=== PATIENT | male | born 1945 | race Caucasian/White ===

== ENCOUNTER 2018-10-08 16:36 | Emergency (ER) | payer OTHER ==
--- OUTSIDE RECORDS SUMMARY | 2018-10-08 16:39 | XMS REPORT ---
:1945 [facility] Address [address] [place] [address] [address]. [address] [place] [address] Care Team Providers Name Role Phone DR DAWSON STAHL S Unavailable Unavailable Problems This patient has no known problems. Allergies, Adverse Reactions, Alerts This patient has no known allergies or adverse reactions. Medications This patient has no known medications. Encounters Start End Encounter Admission Attending Care Care Encounter Date/Time Date/Time Type Type Clinicians Facility Department ID 2017-12-07 2017-12-07 Outpatient Joshua STAHL Joshua [facility] [id number] 15:17:00 23:59:00 DAWSON Results Test Description Test Time Test Comments Text Results Atomic Results Result Comments XR CHEST 2 VIEW 2017-12-07 19:08:18 LOCATION: [id number]: 72-year-old male who *WW* presents with a cough.COMMENT: Frontal and lateral chest radiographs were obtained. The lungs are clear and well-aerated. The cardiac silhouette, jodie, andmediastinum are within normal limits. The skeleton and soft tissues areunremarkable. The thoracic aorta is uncoiled and mildly ectatic.IMPRESSION:Unremarkable radiographic examination of the chest.
--- NOTE | 2018-10-08 18:08 | RAD REPORT ---
EXAM DESCRIPTION: RAD - Shoulder Right 2 View - 10/08/2018 5:46 pm CLINICAL HISTORY: Right shoulder pain status post fall FINDINGS: No fracture or dislocation is seen.
--- NOTE | 2018-10-08 18:35 | EDPHYS ---
Physician Documentation [facility] Name: Yohannes Pritchett Age: 73 yrs Sex: Male : 1945 Arrival Date: 10/08/2018 Time: 16:40 Bed 7 Private MD: Out, [facility] ED Physician Akshat Castelan HPI: 10/08 18:03 This 73 yrs old Male presents to ER via Ambulatory with complaints of Fall jmm Injury - SHOULDER. 18:03 Details of fall: The patient fell from an upright position. Onset: The symptoms/episode jmm began/occurred acutely, yesterday. Associated injuries: The patient sustained right shoulder. This is a 73 year old male with a history of HLP, HTN that presents to the ED with right shoulder pain beginning yesterday after the patient slipped on a floor with his right shoulder hitting a table. Patient complains of pain on abduction. Denies other injury. . Historical: - Allergies: 16:52 No Known Allergies; aj - PMHx: 16:52 Hyperlipidemia; Hypertension; aj - PSHx: 16:52 None; aj - Immunization history: Last tetanus immunization: - up to date. - Social history:: Smoking status: Patient/guardian denies using tobacco. - Ebola Screening: : Patient negative for fever greater than or equal to 101.5 degrees Fahrenheit, and additional compatible Ebola Virus Disease symptoms Patient denies exposure to infectious person Patient denies travel to an Ebola-affected area in the 21 days before illness onset No symptoms or risks identified at this time. ROS: 18:03 Constitutional: Negative for fever, chills, and weight loss, Cardiovascular: Negative jmm for chest pain, palpitations, and edema, Respiratory: Negative for shortness of breath, cough, wheezing, and pleuritic chest pain. 18:03 MS/extremity: Positive for injury or acute deformity, pain. 18:03 All other systems are negative. Exam: 18:03 Constitutional: This is a well developed, well nourished patient who is awake, alert, jmm and in no acute distress. Head/Face: atraumatic. Eyes: EOMI, no conjunctival erythema appreciated ENT: Moist Mucus Membranes Neck: Trachea midline, Supple Chest/axilla: Normal chest wall appearance and motion. Cardiovascular: Regular rate and rhythm. No edema appreciated Respiratory: Normal respirations, no respiratory distress appreciated 18:03 Musculoskeletal/extremity: patient is unable to abduct right arm due to pain. pain is elicited on palpation of the right proximal humeral region, full radial pulse, NVI, full metalsmith helper strength. 18:03 Skin: Appearance: Color: normal in color. 18:03 Neuro: Orientation: is normal, Mentation: is normal, Memory: is normal. 18:03 Psych: Behavior/mood is pleasant, cooperative. Vital Signs: 16:49 BP 135 / 79; Pulse 73; Resp 20; Temp 98.4; Pulse Ox 100% on R/A; Weight 91.63 kg; aj Height 6 ft. 1 in. (185.42 cm); 16:49 Body Mass Index 26.65 (91.63 kg, 185.42 cm) aj [place] Coma Score: 16:49 Eye Response: spontaneous(4). Verbal Response: oriented(5). Motor Response: obeys aj commands(6). Total: 15. Trauma Score (Adult): 16:49 Eye Response: spontaneous(1); Verbal Response: oriented(1); Motor Response: obeys aj commands(2); Systolic BP: > 89 mm Hg(4); Respiratory Rate: 10 to 29 per min(4); Tang Score: 15; Trauma Score: 12 MDM: 17:44 Patient medically screened. [facility] 18:33 Data reviewed: vital signs, nurses notes. Counseling: I had a detailed discussion with erin the patient and/or guardian regarding: the historical points, exam findings, and any diagnostic results supporting the discharge/admit diagnosis, radiology results, the need for outpatient follow up, to return to the emergency department if symptoms worsen or persist or if there are any questions or concerns that arise at home. 10/08 16:52 Order name: XRAY Shoulder RIGHT 2 view; Complete Time: 18:11 aj Administered Medications: No medications were administered Disposition: 10/08/18 18:34 Discharged to Home. Impression: Strain of unspecified muscle, fascia and tendon at shoulder and upper arm level, unspecified arm. - Condition is Stable. - Discharge Instructions: Shoulder Sprain. - Prescriptions for Baclofen 10 mg Oral Tablet - take 1 tablet by ORAL route 3 times per day; 20 tablet. - Medication Reconciliation Form, Thank You Letter, Antibiotic Education, Prescription Opioid Use form. - Follow up: Ashwin Schultz MD; When: 2 - 3 days; Reason: Recheck today's complaints, Continuance of care, Re-evaluation by your physician. Addendum: 10/12/2018 11:04 Co-signature as Attending Physician, Akshat Castelan MD I agree with the assessment and c haro plan of care. Signatures: Dispatcher [employer] EDJackie Bhandari RN RN sv Myers, Amanda, RN RN aj Anderson, Corey, MD MD cha Mickail, Joel, PA PA jmm Corrections: (The following items were deleted from the chart) 10/08 18:41 18:34 10/08/2018 18:34 Discharged to Home. Impression: Strain of unspecified muscle, sv fascia and tendon at shoulder and upper arm level, unspecified arm. Condition is Stable. Forms are Medication Reconciliation Form, Thank You Letter, Antibiotic Education, Prescription Opioid Use. Follow up: Ashwin Schultz; When: 2 - 3 days; Reason: Recheck today's complaints, Continuance of care, Re-evaluation by your physician. erin
--- NOTE | 2018-10-08 18:35 | ER ---
Nurse's Notes [facility] Name: Yohannes Pritchett Age: 73 yrs Sex: Male : 1945 Arrival Date: 10/08/2018 Time: 16:40 Bed 7 Private MD: Out, [facility] Diagnosis: Strain of unspecified muscle, fascia and tendon at shoulder and upper arm level, unspecified arm Presentation: 10/08 16:49 Presenting complaint: Patient states: Slip and fall yesterday, hitting right shoulder aj on table. Patient reports pain with lifting right arm. Care prior to arrival: None. Mechanism of Injury: Fall from standing position. Trauma event details: Injury occurred in the [facility], Injury occurred: at home. Injury occurred: October 07, 2018. 16:49 Acuity: ROXANNE 4 aj 16:49 Method Of Arrival: Ambulatory aj 17:40 Transition of care: patient was not received from another setting of care. Transition sv of care: patient was not received from another setting of care. Onset of symptoms was October 07, 2018. Risk Assessment: Do you want to hurt yourself or someone else? Patient reports no desire to harm self or others. Initial Sepsis Screen: Does the patient meet any 2 criteria? No. Patient's initial sepsis screen is negative. Does the patient have a suspected source of infection? No. Patient's initial sepsis screen is negative. Trauma Activation: Not Applicable Physician: ED Physician; Name: ; Notified At: ; Arrived At: Physician: General Surgeon; Name: ; Notified At: ; Arrived At: Physician: Radiology; Name: ; Notified At: ; Arrived At: Physician: Respiratory; Name: ; Notified At: ; Arrived At: Physician: Lab; Name: ; Notified At: ; Arrived At: Historical: - Allergies: 16:52 No Known Allergies; aj - PMHx: 16:52 Hyperlipidemia; Hypertension; aj - PSHx: 16:52 None; aj - Immunization history: Last tetanus immunization: - up to date. - Social history:: Smoking status: Patient/guardian denies using tobacco. - Ebola Screening: : Patient negative for fever greater than or equal to 101.5 degrees Fahrenheit, and additional compatible Ebola Virus Disease symptoms Patient denies exposure to infectious person Patient denies travel to an Ebola-affected area in the 21 days before illness onset No symptoms or risks identified at this time. Screenin:40 Nutritional screening: No deficits noted. Fall Risk None identified. sv 18:12 Abuse screen: Denies threats or abuse. Denies injuries from another. Tuberculosis hb screening: No symptoms or risk factors identified. Primary Survey: 16:49 NO uncontrolled hemorrhage observed. Breathing/Chest: Respiratory pattern: regular, aj Respiratory effort: spontaneous, unlabored. Circulation: Skin color: pink, Skin temperature: warm, dry. Disability Alert. Assessment: 16:49 General: Appears in no apparent distress. comfortable, Behavior is calm, cooperative, aj appropriate for age. Pain: Complains of pain in anterior aspect of right shoulder. Neuro: Level of Consciousness is awake, alert, obeys commands, Oriented to person, place, time, situation, Appropriate for age. Respiratory: Airway is patent Respiratory effort is even, unlabored, Respiratory pattern is regular, symmetrical. Derm: Skin is intact, is healthy with good turgor, Skin is pink, warm \T\ dry. normal. Musculoskeletal: Reports pain in anterior aspect of right shoulder. 17:30 General: Appears in no apparent distress. comfortable, Behavior is calm, cooperative, sv appropriate for age. Pain: Complains of pain in anterior aspect of right shoulder Pain currently is 5 out of 10 on a pain scale. Neuro: Level of Consciousness is awake, alert, obeys commands, Oriented to person, place, time, situation, Moves all extremities. Full function. Respiratory: Respiratory effort is even, unlabored, Respiratory pattern is regular, symmetrical. Derm: Skin is pink, warm \T\ dry. Musculoskeletal: Range of motion: intact in all extremities. Vital Signs: 16:49 BP 135 / 79; Pulse 73; Resp 20; Temp 98.4; Pulse Ox 100% on R/A; Weight 91.63 kg; aj Height 6 ft. 1 in. (185.42 cm); 16:49 Body Mass Index 26.65 (91.63 kg, 185.42 cm) aj [place] Coma Score: 16:49 Eye Response: spontaneous(4). Verbal Response: oriented(5). Motor Response: obeys aj commands(6). Total: 15. Trauma Score (Adult): 16:49 Eye Response: spontaneous(1); Verbal Response: oriented(1); Motor Response: obeys aj commands(2); Systolic BP: > 89 mm Hg(4); Respiratory Rate: 10 to 29 per min(4); Tang Score: 15; Trauma Score: 12 ED Course: 16:40 Patient arrived in ED. sb2 16:40 Out, [facility] is Private Physician. sb2 16:50 Triage completed. aj 16:52 Arm band placed on right wrist. Patient placed in waiting room. aj 17:40 Patient has correct armband on for positive identification. Bed in low position. Head sv of bed elevated. 17:44 John Preston PA is PHCP. jmm 17:44 Akshat Castelan MD is Attending Physician. jmm 17:47 XRAY Shoulder RIGHT 2 view In Process Unspecified. EDMS 18:02 Jackie Agarwal, CHRIS is Primary Nurse. sv 18:33 Ashwin Schultz MD is Referral Physician. m 18:41 No provider procedures requiring assistance completed. Patient did not have IV access sv during this emergency room visit. 19:29 Primary Nurse role handed off by Jackie Agarwal RN sv Administered Medications: No medications were administered Outcome: 18:34 Discharge ordered by . m 18:41 Patient left the ED. sv 18:41 Discharged to home ambulatory. sv 18:41 Condition: stable 18:41 Discharge instructions given to patient, Instructed on discharge instructions, follow up and referral plans. no drinking with medication, no driving heavy equipment, medication usage, Demonstrated understanding of instructions, follow-up care, medications, Prescriptions given X 1. Signatures: Dispatcher [employer] EDMS Jackie Agarwal RN RN sv Myers, Amanda RN John Kimble PA PA Mica Burciaga RN RN hb Billeau, Sheri sb2
== END 2018-10-08 18:41 | disposition home or self-care (01) ==
LOC: ER 16:36
DX: S46.911A Strain of unspecified muscle, fascia and tendon at shoulder and upper arm level, right arm, initial encounter (principal); W01.190A Fall on same level from slipping, tripping and stumbling with subsequent striking against furniture, initial encounter; E78.5 Hyperlipidemia, unspecified; I10 Essential (primary) hypertension
CPT/HCPCS: 99283

== ENCOUNTER 2019-07-20 12:26 | Emergency (ER) | payer OTHER, MEDICARE ==
[2019-07-20 14:50] LABS: Bilirubin Direct 0.2 mg/dL (0-0.2); Bilirubin Total 0.8 mg/dL (0.2-1.0); Potassium 3.8 mmol/L (3.5-5.1); Protein, Total 7.4 g/dL (6.4-8.2)
[2019-07-20 14:55] LABS: Absolute Lymphocytes (CBC) 3.1 K/uL (0.7-4.9); Basophils % 0.8 % (0-1.3); Hematocrit 39.3 % (39.6-49.0); Lymphocytes % 31.4 % (15.3-44.8); MPV 7.9 fL (7.6-11.3); RBC Red Blood Cell Count 4.39 M/uL (4.33-5.43)
[2019-07-20] MEDS ORDERED: DIAZEPAM 5 MG TABLET ONE (15:16)
[2019-07-20] MEDS ORDERED: SIMETHICONE 80 MG TAB ONE (15:17)
[2019-07-20] MEDS ORDERED: NA CHLORIDE 0.9% 1,000 ML ONE (15:17)
--- NOTE | 2019-07-20 16:25 | RAD REPORT ---
EXAM DESCRIPTION: CT - Abdomen Pelvis W Contrast - 07/20/2019 3:54 pm CLINICAL HISTORY: Abdominal pain. COMPARISON: None. TECHNIQUE: Computed axial tomography of the abdomen and pelvis was obtained. 100 cc Isovue-300 is ad ministered intravenously. Oral contrast was given. All CT scans are performed using dose optimization technique as appropriate and may include automated exposure control or mA/KV adjustment according to patient size. FINDINGS: The liver, spleen, pancreas, and adrenals appear unremarkable. 4.7 centimeter mass extends off of the anterior aspect of the left kidney. Hounsfield unit 24. A 3.6 centimeter mass extends off of midpole of the left kidney Hounsfield unit 74. No thick wall Small simple cysts seen within each kidney An abnormal appendix is not visualized There is no evidence of diverticulitis The prostate gland is moderately to markedly enlarged. Small inguinal hernias contain fat Small hiatal hernia. Small umbilical hernia IMPRESSION: Two masses extending off of the left kidney probably benign complex cysts. . Follow up r enal ultrasound in 3 months recommended for re-evaluation No acute abnormality displayed
--- NOTE | 2019-07-20 16:35 | ER ---
Nurse's Notes [facility] Name: Yohannes Pritchett Age: 74 yrs Sex: Male : 1945 Arrival Date: 07/20/2019 Time: 12:30 Bed 13 Private MD: Diagnosis: Unspecified abdominal pain;Mass on kidney Presentation: 07/20 12:46 Presenting complaint: Patient states: "my stomach is sore specially right here (points aa5 to LLQ) and it's been going on for months". pt reports he has colonoscopy scheduled for the end of July. Pt reports nausea, denies vomiting. Transition of care: patient was not received from another setting of care. Onset of symptoms was 2018. Risk Assessment: Do you want to hurt yourself or someone else? Patient reports no desire to harm self or others. Initial Sepsis Screen: Does the patient meet any 2 criteria? No. Patient's initial sepsis screen is negative. Does the patient have a suspected source of infection? No. Patient's initial sepsis screen is negative. Care prior to arrival: None. 12:46 Acuity: ROXANNE 3 aa5 12:46 Method Of Arrival: Ambulatory aa5 Historical: - Allergies: 12:46 No Known Allergies; aa5 - PMHx: 12:46 Hyperlipidemia; Hypertension; aa5 - PSHx: 12:46 None; aa5 - Immunization history:: Adult Immunizations up to date. - Social history:: Smoking status: Patient/guardian denies using tobacco. - Ebola Screening: : No symptoms or risks identified at this time. Screenin:26 Abuse screen: Denies threats or abuse. Denies injuries from another. Nutritional jl7 screening: No deficits noted. Tuberculosis screening: No symptoms or risk factors identified. Fall Risk IV access (20 points). Total Dhillon Fall Scale indicates No Risk (0-24 pts). Assessment: 14:15 General: Appears in no apparent distress. uncomfortable, Behavior is cooperative, jl7 anxious. Pain: Denies pain. Neuro: Level of Consciousness is awake, alert, obeys commands. Cardiovascular: Patient's skin is warm and dry. Respiratory: Airway is patent Respiratory effort is even, unlabored, Respiratory pattern is regular, symmetrical. GI: Abdomen is round non-distended, Bowel sounds present X 4 quads. Abd is soft and non tender X 4 quads. Derm: Skin is pink, warm \\T\\ dry. 14:26 Reassessment: Pt done drinking oral contrast, CT notified. jl7 15:15 Reassessment: Patient appears in no apparent distress at this time. Patient and/or jl7 family updated on plan of care and expected duration. Pain level reassessed. Patient is alert, oriented x 3, equal unlabored respirations, skin warm/dry/pink. 16:15 Reassessment: Patient appears in no apparent distress at this time. Patient and/or jl7 family updated on plan of care and expected duration. Pain level reassessed. Patient is alert, oriented x 3, equal unlabored respirations, skin warm/dry/pink. Patient states feeling better. Patient states symptoms have improved. Vital Signs: 12:48 BP 135 / 97; Pulse 68; Resp 18 S; Temp 98.2(TE); Pulse Ox 97% on R/A; Weight 92.99 kg aa5 (R); Height 6 ft. 1 in. (185.42 cm) (R); Pain 0/10; 15:37 BP 132 / 84; Pulse 58; Resp 16 S; Pulse Ox 98% on R/A; jl7 16:45 BP 130 / 85; Pulse 62; Resp 16 S; Pulse Ox 100% on R/A; jl7 12:48 Body Mass Index 27.05 (92.99 kg, 185.42 cm) [facility] ED Course: 12:30 Patient arrived in ED. as 12:45 Arm band placed on. [facility] 12:48 Triage completed. aa5 14:01 Jasmyn Hern[facility]dez [facility]-C [facility] snw 14:01 Akshat Castelan MD is Attending Physician. snw 14:08 Rima Valera RN is Primary Nurse. [facility] 14:26 Patient has correct armband on for positive identification. Bed in low position. Call [facility] light in reach. Side rails up X 1. 14:26 Initial lab(s) drawn, by me, sent to lab. Inserted saline lock: 22 gauge in right jl7 antecubital area, using aseptic technique. Blood collected. 15:53 CT completed. Patient tolerated procedure well. Patient moved back from CT. vm2 15:55 CT Abd/Pelvis - PO and IV Contrast In Process Unspecified. EDMS 17:16 No provider procedures requiring assistance completed. IV discontinued, intact, jl7 bleeding controlled, No redness/swelling at site. Pressure dressing applied. Administered Medications: 15:23 Drug: Simethicone 120 mg Route: PO; jl7 16:00 Follow up: Response: No adverse reaction jl7 15:23 Drug: Valium 5 mg Route: PO; jl7 16:00 Follow up: Response: No adverse reaction [facility] 15:23 Drug: NS 0.9% 1000 ml Route: IV; Rate: 200 ml/hr; Site: right antecubital; jl7 17:16 Follow up: IV Status: Completed infusion jl7 Outcome: 16:34 Discharge ordered by . snzack 17:16 Discharged to home ambulatory. jl 17:16 Condition: stable 17:16 Discharge instructions given to patient, Instructed on discharge instructions, follow up and referral plans. medication usage, Demonstrated understanding of instructions, follow-up care, medications, Prescriptions given X 1. 17:16 Patient left the ED. jl7 Signatures: Dispatcher [employer] EDND Jasmyn Hernández, CUSTOMER ACCOUNT COORDINATOR-C CUSTOMER ACCOUNT COORDINATOR-Shruthi Patel Audri, RN RN aa5 Rima Valera RN RN jl7 Julia Menendez [facility]
--- NOTE | 2019-07-20 16:35 | EDPHYS ---
Physician Documentation [facility] Name: Yohannes Pritchett Age: 74 yrs Sex: Male : 1945 Arrival Date: 07/20/2019 Time: 12:30 Bed 13 Private MD: ED Physician Akshat Castelan HPI: 07/20 14:57 This 74 yrs old Male presents to ER via Ambulatory with complaints of snw Abdominal Pain. 14:57 The patient presents with abdominal pain that is diffuse. Onset: The symptoms/episode snw began/occurred 2 month(s) ago, and became persistent. The symptoms do not radiate. Associated signs and symptoms: Pertinent positives: nausea, vomiting, and diarrhea. The symptoms are described as crampy, intermittent. Severity of pain: At its worst the pain was moderate severe in the emergency department the pain has improved. pt has had two antibiotics over the course of the past two months. Stool for c.diff negative. x 2 as noted. Historical: - Allergies: 12:46 No Known Allergies; aa5 - PMHx: 12:46 Hyperlipidemia; Hypertension; aa5 - PSHx: 12:46 None; aa5 - Immunization history:: Adult Immunizations up to date. - Social history:: Smoking status: Patient/guardian denies using tobacco. - Ebola Screening: : No symptoms or risks identified at this time. ROS: 14:55 Constitutional: Negative for fever, chills, and weight loss, Eyes: Negative for injury, snw pain, redness, and discharge, ENT: Negative for injury, pain, and discharge, Neck: Negative for injury, pain, and swelling, Cardiovascular: Negative for chest pain, palpitations, and edema, Respiratory: Negative for shortness of breath, cough, wheezing, and pleuritic chest pain, Back: Negative for injury and pain, : Negative for injury, bleeding, discharge, and swelling, MS/Extremity: Negative for injury and deformity, Skin: Negative for injury, rash, and discoloration, Neuro: Negative for headache, weakness, numbness, tingling, and seizure, Psych: Negative for depression, anxiety, suicide ideation, homicidal ideation, and hallucinations. 14:55 Abdomen/GI: Positive for abdominal pain, nausea, vomiting, and diarrhea. Exam: 14:55 Constitutional: This is a well developed, well nourished patient who is awake, alert, snw and in no acute distress. Head/Face: Normocephalic, atraumatic. Eyes: Pupils equal round and reactive to light, extra-ocular motions intact. Lids and lashes normal. Conjunctiva and sclera are non-icteric and not injected. Cornea within normal limits. Periorbital areas with no swelling, redness, or edema. ENT: Nares patent. No nasal discharge, no septal abnormalities noted. Tympanic membranes are normal and external auditory canals are clear. Oropharynx with no redness, swelling, or masses, exudates, or evidence of obstruction, uvula midline. Mucous membranes moist. Neck: Trachea midline, no thyromegaly or masses palpated, and no cervical lymphadenopathy. Supple, full range of motion without nuchal rigidity, or vertebral point tenderness. No Meningismus. Chest/axilla: Normal chest wall appearance and motion. Nontender with no deformity. No lesions are appreciated. Cardiovascular: Regular rate and rhythm with a normal S1 and S2. No gallops, murmurs, or rubs. Normal PMI, no JVD. No pulse deficits. Respiratory: Lungs have equal breath sounds bilaterally, clear to auscultation and percussion. No rales, rhonchi or wheezes noted. No increased work of breathing, no retractions or nasal flaring. Back: No spinal tenderness. No costovertebral tenderness. Full range of motion. Skin: Warm, dry with normal turgor. Normal color with no rashes, no lesions, and no evidence of cellulitis. MS/ Extremity: Pulses equal, no cyanosis. Neurovascular intact. Full, normal range of motion. Neuro: Awake and alert, GCS 15, oriented to person, place, time, and situation. Cranial nerves II-XII grossly intact. Motor strength 5/5 in all extremities. Sensory grossly intact. Cerebellar exam normal. Normal gait. 14:55 Abdomen/GI: Inspection: distension, that is mild, Bowel sounds: hyperactive, in all quadrants, Palpation: abdomen is soft and non-tender, in all quadrants. 14:55 Psych: Behavior/mood is anxious. Vital Signs: 12:48 BP 135 / 97; Pulse 68; Resp 18 S; Temp 98.2(TE); Pulse Ox 97% on R/A; Weight 92.99 kg aa5 (R); Height 6 ft. 1 in. (185.42 cm) (R); Pain 0/10; 15:37 BP 132 / 84; Pulse 58; Resp 16 S; Pulse Ox 98% on R/A; jl7 16:45 BP 130 / 85; Pulse 62; Resp 16 S; Pulse Ox 100% on R/A; jl7 12:48 Body Mass Index 27.05 (92.99 kg, 185.42 cm) aa5 MDM: 14:03 Patient medically screened. snw 16:39 Data reviewed: vital signs, nurses notes. Data interpreted: Pulse oximetry: on room air snw is 98 %. Interpretation: normal. Counseling: I had a detailed discussion with the patient and/or guardian regarding: the historical points, exam findings, and any diagnostic results supporting the discharge/admit diagnosis, the presence of at least one elevated blood pressure reading (>120/80) during this emergency department visit, lab results, radiology results, the need for outpatient follow up, to return to the emergency department if symptoms worsen or persist or if there are any questions or concerns that arise at home. Special discussion: Based on the patient's Hx, exam, and Dx evaluation, there is no indication for emergent surgery or inpatient Tx. It is understood by the patient/guardian that if the Sx's persist or worsen they need to return immediately for re-evaluation. I have referred the patient to see his PCP for further evaluation of high blood pressure. Based on the history and exam findings, there is no indication for further emergent testing or inpatient evaluation. 07/20 14:02 Order name: Basic Metabolic Panel; Complete Time: 14:50 snw 07/20 14:02 Order name: CBC with Diff; Complete Time: 15:10 snw 07/20 14:02 Order name: Creatinine for Radiology; Complete Time: 14:50 snw 07/20 14:02 Order name: Hepatic Function; Complete Time: 14:50 snw 07/20 14:02 Order name: Lipase; Complete Time: 14:50 snw 07/20 14:02 Order name: CT Abd/Pelvis - PO and IV Contrast; Complete Time: 16:29 snw 07/20 14:02 Order name: IV Saline Lock; Complete Time: 14:26 snw 07/20 14:02 Order name: Labs collected and sent; Complete Time: 14:26 snw 07/20 14:49 Order name: NPO: except meds; Complete Time: 15:37 snw Administered Medications: 15:23 Drug: Simethicone 120 mg Route: PO; jl7 16:00 Follow up: Response: No adverse reaction 7 15:23 Drug: Valium 5 mg Route: PO; jl7 16:00 Follow up: Response: No adverse reaction jl7 15:23 Drug: NS 0.9% 1000 ml Route: IV; Rate: 200 ml/hr; Site: right antecubital; jl7 17:16 Follow up: IV Status: Completed infusion jl7 Disposition: 07/21 07:42 Co-signature as Attending Physician, Akshat Castelan MD I agree with the assessment and delaney plan of care. Disposition: 07/20/19 16:34 Discharged to Home. Impression: Unspecified abdominal pain, Mass on kidney. - Condition is Stable. - Discharge Instructions: Abdominal Pain, Adult, Colic, Fat and Cholesterol Restricted Diet, Hypertension. - Prescriptions for simethicone - take 120 milligram by ORAL route 2-3 times daily; 1 box. - Medication Reconciliation Form, Thank You Letter, Antibiotic Education, Prescription Opioid Use form. - Follow up: Private Physician; When: 1 week; Reason: Recheck today's complaints, Continuance of care, Re-evaluation by your physician. Follow up: Emergency Department; When: As needed; Reason: Worsening of condition. Signatures: Dispatcher [employer] Akshat Magana MD MD cha Therrien, Shelly, TANK CAR INSPECTOR-C TANK CAR INSPECTOR-Csnw Ying Alvarado RN RN aa5 Rima Valera RN RN jl7 Corrections: (The following items were deleted from the chart) 07/20 17:16 16:34 07/20/2019 16:34 Discharged to Home. Impression: Unspecified abdominal pain; Mass jl7 on kidney. Condition is Stable. Forms are Medication Reconciliation Form, Thank You Letter, Antibiotic Education, Prescription Opioid Use. Follow up: Private Physician; When: 1 week; Reason: Recheck today's complaints, Continuance of care, Re-evaluation by your physician. Follow up: Emergency Department; When: As needed; Reason: Worsening of condition. snw
[2019-07-20 17:25] VITALS: TEMP 98.2
[2019-07-20 17:27] VITALS: BP 130/85; O2SAT 100
== END 2019-07-20 17:16 | disposition home or self-care (01) ==
LOC: ER 12:26
DX: N28.89 Other specified disorders of kidney and ureter (principal); I10 Essential (primary) hypertension
CPT/HCPCS: 85025; 80048; 36415; 80076; 83690; 74177; Q9967; J7030; 96360; 96361; 99284

== ENCOUNTER 2019-11-16 16:26 | Emergency (ER) | payer OTHER, MEDICARE ==
--- OUTSIDE RECORDS SUMMARY | 2019-11-16 16:28 | XMS REPORT ---
:1945 Author Organization [employer] Care Team Providers Name Role Phone Ashwin Schultz Provider Role Unavailable Allergies, Adverse Reactions, Alerts Substance Reaction Event Type N.K.D.A. Info Not Available Non Drug Allergy Problems Problem Type Condition Code Onset Dates Condition Status Problem Impingement syndrome of right M75.41 Active shoulder Problem Acute pain of right shoulder M25.511 Active Problem Contusion of right shoulder, S40.011A Active initial encounter Assessment Impingement syndrome of right M75.41 Active shoulder Assessment Contusion of right shoulder, S40.011A Active initial encounter Assessment Acute pain of right shoulder M25.511 Active Medications Medication Code System Code Instructions Start End Date Status Dosage Date Atorvastatin [facility] [address]2491-964 Active not defined Calcium 7-98 Diazepam [facility] 01378-595 Active not defined 0-01 Losartan [facility] 68632-415 Active not defined Potassium-HCTZ 9-10 Metoprolol [facility] 38200-367 Active not defined Succinate ER 3-37 Trazodone HCl [facility] 45184-031 Active not defined 3-02 Baclofen [facility] 88839-533 Active not defined 0-06 Results No Known Results Summary Purpose [employer]ClinicalWorks Submission
--- OUTSIDE RECORDS SUMMARY | 2019-11-16 16:28 | XMS REPORT ---
:1945 [facility] Address [address] [place] [place] [address] Care Team Providers Name Role Phone DR SEVERO JOE Unavailable Unavailable DR DAWSON STAHL Unavailable Unavailable Problems This patient has no known problems. Allergies, Adverse Reactions, Alerts This patient has no known allergies or adverse reactions. Medications This patient has no known medications. Encounters Start End Encounter Admission Attending Care Care Encounter Date/Time Date/Time Type Type Clinicians Facility Department ID 2019-08-12 2019-08-12 Outpatient Joshua JOE [facility] ENDO [id number] 06:14:00 08:40:00 SEVERO 2017-12-07 2017-12-07 Outpatient Joshua STAHL [facility] RAD [id number] 15:17:00 23:59:00 DAWSON Results Test Description Test Time Test Comments Text Results Atomic Results Result Comments BASIC METABOLIC PANEL 2019-08-12 07:15:00 Test Item Value Reference Range Comments GLUCOSE (test code=06D) 103 mg/dL 75-100 SODIUM (test code=01A) 144 mmol/L 136-145 POTASSIUM (test code=01B) 3.8 mmol/L 3.6-5.1 CHLORIDE (test code=04A) 107 mmol/L 98-107 CO2 (test code=02A) 30 mmol/L 22-32 ANION GAP (test code=ANG) 10.8 mmol/L BUN (test code=05D) 16 mg/dL 7-18 CREATININE (test code=03E) 1.3 mg/dL 0.7-1.3 BUN/CREA (test code=BCR) 12 12-20 CALCIUM (test code=09D) 9.1 mg/dL 8.3-9.5 XR CHEST 2 VIEW *WW*2017-12-07 19:08:18LOCATION: [id number]: 72-year-old male who presents with a cough.COMMENT: Frontal and lateral chest radiographs were obtained. The lungs are clear and well-aerated. The cardiac silhouette, jodie, andmediastinum are within normal limits. The skeleton and soft tissues areunremarkable. The thoracic aorta is uncoiled and mildly ectatic.IMPRESSION: Unremarkable radiographic examination of the chest.
--- OUTSIDE RECORDS SUMMARY | 2019-11-16 16:28 | XMS REPORT ---
[...] Start End Date Status Dosage Date Atorvastatin [facility] 17584-398 Active not defined Calcium 7-98 Losartan [facility] 99907-888 Active not defined Potassium-HCTZ 9-10 Trazodone HCl [facility] 48167-650 Active not defined 3-02 Diazepam [facility] 47654-693 Active not defined 0-01 Metoprolol [facility] 03263-989 Active not defined Succinate ER 3-37 Baclofen [facility] 30129-843 Active not defined 0-06 Results No Known Results Summary Purpose eClinicalWorks Submission
--- NOTE | 2019-11-16 17:40 | ER ---
Nurse's Notes [facility] Name: Yohannes Pritchett Age: 74 yrs Sex: Male : 1945 Arrival Date: 11/16/2019 Time: 16:28 Bed 13 Private MD: Out, [facility] Diagnosis: Essential (primary) hypertension Presentation: 11/16 16:41 Presenting complaint: Patient states: I don't know if my machine is broken but my BP ca1 readings are high. Highest BP I got was 168/82 at 1545 today. I was here 2 days ago for hot flushes. Transition of care: patient was not received from another setting of care. Onset of symptoms was November 16, 2019. Risk Assessment: Do you want to hurt yourself or someone else? Patient reports no desire to harm self or others. Initial Sepsis Screen: Does the patient meet any 2 criteria? No. Patient's initial sepsis screen is negative. Does the patient have a suspected source of infection? No. Patient's initial sepsis screen is negative. Care prior to arrival: None. 16:41 Method Of Arrival: Ambulatory ca1 16:41 Acuity: ROXANNE 4 ca1 Historical: - Allergies: 16:43 No Known Allergies; ca1 - Home Meds: 16:43 metoprolol succinate 50 mg oral Tb24 1 tab once daily [Active]; ca1 losartan-hydrochlorothiazide 100-25 mg oral tab 1 tab once daily [Active]; - PMHx: 16:43 Hyperlipidemia; Hypertension; ca1 - PSHx: 16:43 None; ca1 - Immunization history:: Adult Immunizations up to date, Flu vaccine is up to date. - Coronavirus screen:: The patient has NOT traveled to [place], [place], or [place] in the past 14 days. The patient has NOT had contact with known/suspected case of Coronavirus?. - Social history:: Smoking status: Patient denies any tobacco usage or history of. - Ebola Screening: : Patient negative for fever greater than or equal to 101.5 degrees Fahrenheit, and additional compatible Ebola Virus Disease symptoms Patient denies exposure to infectious person Patient denies travel to an Ebola-affected area in the 21 days before illness onset No symptoms or risks identified at this time. Vital Signs: 16:43 BP 143 / 83; Pulse 84; Resp 17 S; Temp 97.3(TE); Pulse Ox 100% on R/A; Weight 92.08 kg ca1 (R); Height 6 ft. 1 in. (185.42 cm) (R); Pain 0/10; 16:43 Body Mass Index 26.78 (92.08 kg, 185.42 cm) ca1 ED Course: 16:28 Patient arrived in ED. mr 16:28 Out, [facility] is Private Physician. mr 16:37 Nadia Rock, RN is Primary Nurse. ph 16:42 Triage completed. ca1 16:43 [facility] kb 16:43 Jcaob Escobar MD is Attending Physician. kb 16:43 Arm band placed on right wrist. ca1 Administered Medications: No medications were administered Outcome: 17:40 Discharge ordered by . kb 17:48 Patient left the ED. ph Signatures: Vero Bangura FNP-C FNP-Wendy AlonzoaAnnette mr Nadia Rock RN RN Abril Rodrigues RN RN [facility]
--- NOTE | 2019-11-16 17:40 | EDPHYS ---
Physician Documentation [facility] Name: Yohannes Pritchett Age: 74 yrs Sex: Male : 1945 Arrival Date: 11/16/2019 Time: 16:28 Bed 13 Private MD: Out, [facility] ED Physician Jacob Escobar HPI: 11/16 17:46 This 74 yrs old Male presents to ER via Ambulatory with complaints of High kb Blood Pressure. 17:46 The patient has elevated blood pressure and discovered this at home, with a home kb device. Onset: The symptoms/episode began/occurred today. Modifying factors: Modifying factors: The symptoms are aggravated by anxiety. Associated signs and symptoms: The patient has no apparent associated signs or symptoms. Severity of symptoms: At its worst the blood pressure was 168 mm Hg, in the emergency department the blood pressure is improved, 121 mm Hg. The patient has experienced similar episodes in the past. The patient has been recently seen at the [facility] Emergency Department, this week, for similar complaints. Pt reports he was here 2 days ago because he had a hot flash and noticed his heart rate was 107 (on watch monitor). States he never had chest pain, palpitations or any other symptoms and wouldn't have noticed his elevated heart rate if he didn't have the hot flash. States everything checked out and he was able to go home after that visit. States he was busy yesterday so he didn't pay any attention to his vitals, but today he noticed his pulse had an irregular beat every once in a while, which normally means his bp is high. Reports he has had an "erratic" heart beat intermittently for years and his english composition instructor told him it was nothing to worry about. States he started checking his bp and it was in the 160s 3 times at 1500, 1530, and 1545 so he came in. States he had no symptoms and feels fine other than a little anxiety over the top number of the bp. States he lost his and youngest daughter in 2018 and has been very conscious of his health since then because he is alone. Pt became tearful when discussing this. Pt reports his daughter thinks this is all anxiety related and he has talked to his GP about anxiety medication, but he didn't want to put him on medication unless the anxiety is interfering with daily life. We discussed keeping a log of bp to take to follow up appt. Pt reports he called his english composition instructor (Dr Cuevas) and wasn't able to get an appt until 11/25 so he thinks he is going to change to Dr Duggan. Has appt with PCP in the morning. . Historical: - Allergies: 16:43 No Known Allergies; ca1 - Home Meds: 16:43 metoprolol succinate 50 mg oral Tb24 1 tab once daily [Active]; ca1 losartan-hydrochlorothiazide 100-25 mg oral tab 1 tab once daily [Active]; - PMHx: 16:43 Hyperlipidemia; Hypertension; ca1 - PSHx: 16:43 None; ca1 - Immunization history:: Adult Immunizations up to date, Flu vaccine is up to date. - Coronavirus screen:: The patient has NOT traveled to [place], [place], or [place] in the past 14 days. The patient has NOT had contact with known/suspected case of Coronavirus?. - Social history:: Smoking status: Patient denies any tobacco usage or history of. - Ebola Screening: : Patient negative for fever greater than or equal to 101.5 degrees Fahrenheit, and additional compatible Ebola Virus Disease symptoms Patient denies exposure to infectious person Patient denies travel to an Ebola-affected area in the 21 days before illness onset No symptoms or risks identified at this time. ROS: 17:46 Constitutional: Negative for fever, chills, and weight loss, Eyes: Negative for injury, kb pain, redness, and discharge, ENT: Negative for injury, pain, and discharge, Neck: Negative for injury, pain, and swelling, Cardiovascular: Negative for chest pain, palpitations, and edema, Respiratory: Negative for shortness of breath, cough, wheezing, and pleuritic chest pain, Abdomen/GI: Negative for abdominal pain, nausea, vomiting, diarrhea, and constipation, Back: Negative for injury and pain, MS/Extremity: Negative for injury and deformity, Skin: Negative for injury, rash, and discoloration, Neuro: Negative for headache, weakness, numbness, tingling, and seizure. Exam: 17:34 Constitutional: This is a well developed, well nourished patient who is awake, alert, kb and in no acute distress. Head/Face: Normocephalic, atraumatic. ENT: Nares patent. No nasal discharge, no septal abnormalities noted. Tympanic membranes are normal and external auditory canals are clear. Oropharynx with no redness, swelling, or masses, exudates, or evidence of obstruction, uvula midline. Mucous membranes moist. Neck: Trachea midline, no thyromegaly or masses palpated, and no cervical lymphadenopathy. Supple, full range of motion without nuchal rigidity, or vertebral point tenderness. No Meningismus. Chest/axilla: Normal chest wall appearance and motion. Nontender with no deformity. No lesions are appreciated. Cardiovascular: Regular rate and rhythm with a normal S1 and S2. No gallops, murmurs, or rubs. Normal PMI, no JVD. No pulse deficits. Respiratory: Lungs have equal breath sounds bilaterally, clear to auscultation and percussion. No rales, rhonchi or wheezes noted. No increased work of breathing, no retractions or nasal flaring. Abdomen/GI: Soft, non-tender, with normal bowel sounds. No distension or tympany. No guarding or rebound. No evidence of tenderness throughout. Skin: Warm, dry with normal turgor. Normal color with no rashes, no lesions, and no evidence of cellulitis. MS/ Extremity: Pulses equal, no cyanosis. Neurovascular intact. Full, normal range of motion. Neuro: Awake and alert, GCS 15, oriented to person, place, time, and situation. Cranial nerves II-XII grossly intact. Motor strength 5/5 in all extremities. Sensory grossly intact. Cerebellar exam normal. Normal gait. 17:34 ECG was reviewed by the Attending Physician. Vital Signs: 16:43 BP 143 / 83; Pulse 84; Resp 17 S; Temp 97.3(TE); Pulse Ox 100% on R/A; Weight 92.08 kg ca1 (R); Height 6 ft. 1 in. (185.42 cm) (R); Pain 0/10; 16:43 Body Mass Index 26.78 (92.08 kg, 185.42 cm) ca1 MDM: 16:43 Patient medically screened. kb 17:33 Data reviewed: vital signs, nurses notes. Data interpreted: Pulse oximetry: on room air kb is 100 %. Interpretation: normal. Counseling: I had a detailed discussion with the patient and/or guardian regarding: the historical points, exam findings, and any diagnostic results supporting the discharge/admit diagnosis, the need for outpatient follow up, a english composition instructor, a family practitioner, to return to the emergency department if symptoms worsen or persist or if there are any questions or concerns that arise at home. 17:44 ED course: Pt educated on follow up with PCP and Cable Television Installer for reevaluation. kb Educated on possible need for stress test, echo and/or Holter monitor for continued concerns. Pt continues to deny any symptoms related to HTN, including headache, visual changes, chest pain, shortness of breath. Pt educated to return for any concerns or development of symptoms. . 17:56 Data reviewed: old medical records, Labs, x-ray and EKG reviewed from previous visit. kb 11/16 17:11 Order name: EKG; Complete Time: 17:12 kb 11/16 17:11 Order name: EKG - Nurse/Tech; Complete Time: 17:28 kb EC:34 Rate is 67 beats/min. Rhythm is regular. Left axis deviation noted. NV interval is kb normal at 192 msec. QRS interval is normal at 110 msec. QT interval is normal at 384 msec. Interpreted by me. Reviewed by me. Administered Medications: No medications were administered Disposition: 17:56 Co-signature as Attending Physician, Jacob Escobar MD. rn Disposition: 11/16/19 17:40 Discharged to Home. Impression: Essential (primary) hypertension. - Condition is Stable. - Discharge Instructions: Hypertension, [id number], How to Take Your Blood Pressure, [id number], Managing Your Hypertension. - Medication Reconciliation Form, Thank You Letter, Antibiotic Education, Prescription Opioid Use form. - Follow up: Emergency Department; When: As needed; Reason: Worsening of condition. Follow up: Private Physician; When: 2 - 3 days; Reason: Recheck today's complaints, Continuance of care, Re-evaluation by your physician. Signatures: Vero Bangura, BREAKER TENDER-C BREAKER TENDER-Jacob Vanegas MD MD rn Hall, Patricia, RN RN ph Acob, Cheryl, RN RN [facility] Corrections: (The following items were deleted from the chart) 17:48 17:40 11/16/2019 17:40 Discharged to Home. Impression: Essential (primary) ph hypertension. Condition is Stable. Forms are Medication Reconciliation Form, Thank You Letter, Antibiotic Education, Prescription Opioid Use. Follow up: Emergency Department; When: As needed; Reason: Worsening of condition. Follow up: Private Physician; When: 2 - 3 days; Reason: Recheck today's complaints, Continuance of care, Re-evaluation by your physician. kb
[2019-11-16 18:04] VITALS: BP 143/83; TEMP 97.3; O2SAT 100
--- NOTE | 2019-11-17 10:25 | EKG ---
Test Date: 2019-11-16 Test Time: 17:21:55 Cafe Assistant: SANTAT MEASUREMENT RESULTS: Intervals: Rate: 67 [place]: 192 QRSD: 110 QT: 384 QTc: 405 [place]: P: 17 [place]: 192 QRS: -57 T: 49 INTERPRETIVE STATEMENTS: Sinus rhythm with occasional premature ventricular complexes Incomplete right bundle branch block Left anterior fascicular block Abnormal ECG Compared to ECG 11/14/2019 13:56:27 Incomplete right bundle-branch block now present Left anterior fascicular block now present Left-axis deviation no longer present Electronically Signed On 11-17-19 10:24:21 [employer]KE [employer] ATTENDANT by Maurice Duggan
== END 2019-11-16 17:48 | disposition home or self-care (01) ==
LOC: ER 16:26
DX: I10 Essential (primary) hypertension (principal); E78.5 Hyperlipidemia, unspecified
CPT/HCPCS: 93005; 99281